=== PATIENT | female | born 1955 | race American Indian/Alaskan Native ===

== ENCOUNTER 2021-02-20 20:56 | Emergency (ER) | payer SELFPAY ==
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
== END 2021-02-21 02:15 ==
LOC: ED 20:56
DX: I46.9 Cardiac arrest, cause unspecified (principal)
CPT/HCPCS: 92950; 99285